=== PATIENT | female | born 1980 | race Caucasian/White ===

== ENCOUNTER 2017-10-11 12:00 | Inpatient (IN) | payer OTHER ==
[~2017-10-11] VITALS: Ht 160 cm; Wt 3.6 kg
[2017-10-11] MEDS ORDERED: PRENATABS FA T1 EACH PO (14:06)
== END 2017-10-26 17:50 | DRG 766 ==
LOC: OB/GYN 10-23 08:32 → O/R 10-23 08:32 → OB/GYN 10-23 14:21 → O/R 10-25 12:00 → OB/GYN 10-26 17:50
PROVIDERS: Obstetrics & Gynecology
PROC: 0UL70ZZ Occlusion of Bilateral Fallopian Tubes, Open Approach (ICD-10-PCS; 2017-10-23)
PROC: 4A1HXCZ Monitoring of Products of Conception, Cardiac Rate, External Approach (ICD-10-PCS; 2017-10-23)
PROC: 10D00Z1 Extraction of Products of Conception, Low, Open Approach (ICD-10-PCS; principal; 2017-10-23 07:00)
DX: O34.211 Maternal care for low transverse scar from previous cesarean delivery (principal); Z3A.39 39 weeks gestation of pregnancy; Z37.0 Single live birth; Z30.2 Encounter for sterilization; O09.523 Supervision of elderly multigravida, third trimester